=== PATIENT | male | born 1990 | race Hispanic/Latino ===

== ENCOUNTER 2017-07-04 23:23 | Emergency (ER) | payer BC ==
[2017-07-04 23:40] VITALS: BP 131/69; PULSE 70; RESP 16; TEMP 98.6; O2SAT 99
--- NOTE | 2017-07-05 00:09 | ED PDOC ---
HPI: Eye Injury/Pain Time Seen by Provider: 07/04/17 23:44 Chief Complaint (Nursing): Eye Problem Chief Complaint (Provider): left eye irritation History Per: Patient History/Exam Limitations: no limitations Onset/Duration Of Symptoms: Hrs (4) Current Symptoms Are (Timing): Still Present Associated Symptoms: Pain, FB Sensation Additional History Per: Patient Additional Complaint(s): 26 y/o male presents with left eye irritaiton x 4 hours. Patient states he was accidentally poked in the eye. Notes photophobia and blurred vision to left eye. Denies headache, dizziness, drainage from eye. Past Medical History Reviewed: Historical Data, Nursing Documentation, Vital Signs Vital Signs: Last Vital Signs Temp 98.6 F 07/04/17 23:37 Pulse 70 07/04/17 23:37 Resp 16 07/04/17 23:37 BP 131/69 07/04/17 23:37 Pulse Ox 99 07/04/17 23:37 - Medical History PMH: No Chronic Diseases - Surgical History Surgical History: No Surg Hx - Family History Family History: States: No Known Family Hx - Home Medications Home Medications: Ambulatory Orders Medication Instructions Recorded Erythromycin 0.5% [Erythromycin 0.5 in OP QID #1 tube 07/05/17 0.5% Oint] - Allergies Allergies/Adverse Reactions: Allergies Allergy/AdvReac Type Severity Reaction Status Date / Time Sulfa (Sulfonamide Allergy URTICARIA Verified 07/04/17 23:40 Antibiotics) Review of Systems ROS Statement: Except As Marked, All Systems Reviewed And Found Negative Eyes: Positive for: Pain (left), Redness (left) Physical Exam - Reviewed Nursing Documentation Reviewed: Yes Vital Signs Reviewed: Yes - Physical Exam Appears: Positive for: Well, Non-toxic, No Acute Distress Head Exam: Positive for: ATRAUMATIC, NORMAL INSPECTION, NORMOCEPHALIC Skin: Positive for: Normal Color Eye Exam: Positive for: EOMI, PERRL, Conjunctival injection (left). Negative for: Periorbital swelling, Periorbital tenderness ENT: Positive for: Normal ENT Inspection Cardiovascular/Chest: Positive for: Regular Rate, Rhythm Respiratory: Positive for: Normal Breath Sounds Extremity: Positive for: Normal ROM Neurologic/Psych: Positive for: Alert, Oriented - ECG O2 Sat by Pulse Oximetry: 99 - Progress ED Course And Treament: Left eye anesthesized with 2 drops tetracaine; fluro stain reveals uptake 5:00 corneal position. Patch applied. Patient educated on findings, rx Erythromycin ointment given. Advised follow up optho. Return precautions given. Disposition - Clinical Impression Clinical Impression: Corneal abrasion, left Counseled Patient/Family Regarding: Studies Performed, Diagnosis, Need For Followup, Rx Given - Disposition Referrals: Frankie Ivey MD [Staff Provider] - Disposition: Routine/Home Disposition Time: 00:23 Condition: IMPROVED Prescriptions: Erythromycin 0.5% [Erythromycin 0.5% Oint] 0.5 in OP QID #1 tube Instructions: Corneal Abrasion (ED) Forms: [facility] ([place])
== END 2017-07-05 00:43 | disposition home or self-care (01) ==
LOC: H.ER 23:23
DX: S05.02XA Injury of conjunctiva and corneal abrasion without foreign body, left eye, initial encounter (principal); W22.8XXA Striking against or struck by other objects, initial encounter; Y92.89 Other specified places as the place of occurrence of the external cause